=== PATIENT | female | born 1985 | race Hispanic/Latino ===

== ENCOUNTER 2024-12-09 20:04 | Emergency (ER) | payer SELFPAY ==
--- NOTE | 2024-12-09 21:06 | RAD REPORT ---
EXAMINATION: XR LEFT KNEE CLINICAL INDICATION: PAIN TECHNIQUE: Multiple projections of the left knee were obtained. COMPARISON: No prior exam. FINDINGS: No bone or joint abnormality seen.
--- NOTE | 2024-12-09 21:40 | ER ---
Nurse's Notes [facility] Name: Crystal Sánchez Age: 39 yrs Sex: Female : 1985 Arrival Date: 12/09/2024 Time: 20:04 Bed 12 Private MD: Diagnosis: Pain in left knee Presentation: 12/09 20:16 Chief complaint: Patient states: I fell a week ago on my left knee and it is still kd3 causing me a lot of pain. Pt is ambulatory in triage but limping. NAD otherwise. Coronavirus screen: Vaccine status: Patient reports being unvaccinated. Ebola Screen: No symptoms or risks identified at this time. Initial Sepsis Screen: Does the patient meet any 2 criteria? No. Patient's initial sepsis screen is negative. Does the patient have a suspected source of infection? No. Patient's initial sepsis screen is negative. Risk Assessment: Do you want to hurt yourself or someone else? Patient reports no desire to harm self or others. Onset of symptoms was December 09, 2024. 20:16 Method Of Arrival: Ambulatory kd3 20:16 Acuity: JIMMIE 4 kd3 Triage Assessment: 20:19 General: Appears uncomfortable, Behavior is calm, cooperative. Pain: Complains of pain kd3 in left knee. Historical: - Allergies: 20:19 Naproxen; kd3 - Immunization history:: Adult Immunizations up to date. - Infectious Disease History:: Denies. - Social history:: Smoking status: Patient/guardian denies using tobacco, Stopped _ months ago 8. Screenin:23 [facility] ED Fall Risk Assessment (Adult) History of falling in the last 3 months, kd3 including since admission No falls in past 3 months (0 pts) Confusion or Disorientation No (0 pts) Intoxicated or Sedated No (0 pts) Impaired Gait No (0 pts) Mobility Assist Device Used No (0 pt) Altered Elimination No (0 pt) Score/Fall Risk Level 0 - 2 = Low Risk Maintained a safe environment. Abuse screen: Denies threats or abuse. Denies injuries from another. Nutritional screening: No deficits noted. Tuberculosis screening: No symptoms or risk factors identified. Assessment: 20:22 General: Appears uncomfortable, Behavior is calm, cooperative. Neuro: Level of kd3 Consciousness is awake, alert, obeys commands, Oriented to person, place, time, situation. Cardiovascular: Capillary refill < 3 seconds Patient's skin is warm and dry. Respiratory: Airway is patent Trachea midline Respiratory effort is even, unlabored, Respiratory pattern is regular, symmetrical. Vital Signs: 20:16 Pulse 69; Resp 18; Temp 97.9(TE); Pulse Ox 100% ; Weight 102.06 kg; Height 5 ft. 6 in. kd3 ; Pain 8/10; 20:20 BP 131 / 74; kd3 21:53 BP 129 / 79; Pulse 84; Resp 18; Pulse Ox 99% on R/A; kd3 20:16 Body Mass Index 36.32 (102.06 kg, 167.64 cm) kd3 20:16 Pain Scale: Adult kd3 ED Course: 20:09 Patient arrived in ED. gl 20:11 [facility]nal[facility] Cat [facility]C [facility] kb 20:11 Tam Lou MD is Attending Physician. kb 20:19 Triage completed. kd3 20:19 Arm band placed on right wrist. kd3 20:22 Cinthia Kitchen, RN is Primary Nurse. kd3 20:23 Patient has correct armband on for positive identification. Provided Education on: kd3 Xrays . 21:01 Knee Left 3 View XRAY In Process Unspecified. EDMS 21:53 No provider procedures requiring assistance completed. IV discontinued, intact, kd3 bleeding controlled, No redness/swelling at site. Pressure dressing applied. Administered Medications: 21:53 Drug: Hydrocodone-Acetaminophen PO (7.5 mg-325 mg) 1 tabs PO once Route: PO; kd3 Medication: 20:22 VIS not applicable for this client. kd3 Outcome: 21:40 Discharge ordered by . kb 21:54 Discharged to home ambulatory, with family, kd3 21:54 Condition: stable 21:54 Discharge instructions given to patient, family, Instructed on discharge instructions, follow up and referral plans. medication usage, Demonstrated understanding of instructions, follow-up care, 21:54 Patient left the ED. kd3 Signatures: Dispatcher [employer] EDMS Annalisa Cat FNP-C FNP-Cinthia Kingsley RN RN kd3 Sheila Lackey, Reg Reg gl
--- NOTE | 2024-12-09 21:40 | EDPHYS ---
Physician Documentation [facility] Name: Crystal Sánchez Age: 39 yrs Sex: Female : 1985 Arrival Date: 12/09/2024 Time: 20:04 Bed 12 Private MD: ED Physician Tam Lou HPI: 12/09 21:47 This 39 yrs old Female presents to ER via Ambulatory with complaints of Fall kb Injury, Leg Injury. 21:47 Patient is a 39-year-old female presents for left knee pain that started 1 week ago. kb States she fell directly onto left knee and has had pain since then. States pain is gotten worse. Denies any other injury or trauma.. Historical: - Allergies: 20:19 Naproxen; kd3 - Immunization history:: Adult Immunizations up to date. - Infectious Disease History:: Denies. - Social history:: Smoking status: Patient/guardian denies using tobacco, Stopped _ months ago 8. ROS: 21:47 Constitutional: As per HPI kb Exam: 21:47 Constitutional: This is a well developed, well nourished patient who is awake, alert, kb and in no acute distress. Head/Face: Normocephalic, atraumatic. ENT: Moist Mucous membranes Cardiovascular: Regular rate Respiratory: Respirations even and unlabored. No increased work of breathing. Talking in full sentences Skin: Warm, dry with normal turgor. Normal color. Neuro: Awake and alert, GCS 15, oriented to person, place, time, and situation. 21:47 Musculoskeletal/extremity: Extremities: grossly normal except: noted in the left knee: pain, tenderness, ROM: intact in all extremities, Circulation is intact in all extremities. Sensation intact. Weight bearing: able to fully bear weight, Vital Signs: 20:16 Pulse 69; Resp 18; Temp 97.9(TE); Pulse Ox 100% ; Weight 102.06 kg; Height 5 ft. 6 in. kd3 ; Pain 8/10; 20:20 BP 131 / 74; kd3 21:53 BP 129 / 79; Pulse 84; Resp 18; Pulse Ox 99% on R/A; kd3 20:16 Body Mass Index 36.32 (102.06 kg, 167.64 cm) kd3 20:16 Pain Scale: Adult kd3 MDM: 20:11 Medical Screening Exam initiated kb 21:47 Differential diagnosis: contusion, fracture, sprain, strain. Data reviewed: vital kb signs, nurses notes. Independent interpretation of the following test(s) in the Emergency Department X-Ray: My interpretation is No fracture. Historians other than the Patient: Spouse/Significant Other: Significant other. Counseling: I had a detailed discussion with the patient and/or guardian regarding the historical points, exam findings, and any diagnostic results supporting the discharge/admit diagnosis, radiology results, the need for outpatient follow up, a orthopedic surgeon, to return to the emergency department if symptoms worsen or persist or if there are any questions or concerns that arise at home. 12/09 20:25 Order name: Knee Left 3 View XRAY; Complete Time: 21:07 kb 12/09 21:40 Order name: James Wrap; Complete Time: 21:53 kb Administered Medications: 21:53 Drug: Hydrocodone-Acetaminophen PO (7.5 mg-325 mg) 1 tabs PO once Route: PO; kd3 Disposition: 12/10 02:28 Co-signature as Attending Physician, Tam Lou MD I agree with the assessment sp4 and plan of care. I reviewed the patient's care provided by the Advanced Practice Provider and agree with the diagnosis and treatment plan. Disposition Summary: 12/09/24 21:40 Discharge Ordered Notes: Location: Home Condition: Stable kb Diagnosis - Pain in left knee kb Followup: kb - With: Emergency Department - When: As needed - Reason: Worsening of condition Followup: kb - With: Private Physician - When: 2 - 3 days - Reason: Recheck today's complaints, Continuance of care, Re-evaluation by your physician Discharge Instructions: - Discharge Summary Sheet kb - Acute Knee Pain, Adult, [id number] kb Forms: - Medication Reconciliation Form kb - Antibiotic Education kb - Prescription Opioid Use kb - Patient Portal Instructions kb - Leadership Thank You Letter kb Signatures: Dispatcher [employer] Annalisa Franco FNP-C FNP-Ckb Doucette, Kyli RN RN kd3 Tam Lou MD MD sp4
[2024-12-09] MEDS ORDERED: HYDROCODONE/APAP 7.5/325 MG TAB ONE (21:45)
[2024-12-09 21:58] VITALS: TEMP 97.9
[2024-12-09 22:01] VITALS: BP 129/79; O2SAT 99
== END 2024-12-09 21:54 | disposition home or self-care (01) ==
LOC: ER 20:04
DX: M25.562 Pain in left knee (principal)
CPT/HCPCS: 99283